=== PATIENT | female | born 1985 | race Caucasian/White ===

== ENCOUNTER 2020-08-24 07:00 | Outpatient (CLI) | payer MEDICAID | END 2020-08-24 23:59 | disposition home or self-care (01) | LOC: COV 07:00 | PROVIDERS: ATTEND Family Medicine | DX: R50.9 Fever, unspecified (principal); R05 Cough; M79.10 Myalgia, unspecified site; R53.83 Other fatigue; R19.7 Diarrhea, unspecified; R11.2 Nausea with vomiting, unspecified; Z20.822 Contact with and (suspected) exposure to COVID-19 ==

== ENCOUNTER 2021-03-13 09:54 | Emergency (ER) | payer MEDICAID ==
[2021-03-13 10:07] VITALS: BP 120/72
--- NOTE | 2021-03-13 11:12 | ED Physician Documentation ---
PD HPI HEENT - Stated complaint Stated Complaint: RT EAR PX - Chief complaint Chief Complaint: Heent - History obtained from History obtained from: Patient - History of Present Illness Timing - onset: How many weeks ago (1-2) Timing - duration: Weeks Timing - details: Gradual onset, Still present (worse the past couple of days. Had had some pain in ear area mildly, without discharge. Today noted some blood out on pillow.) Location: Right ear Associated symptoms: No: Fever, Rhinorrhea, Facial swelling, Headache, Cough Similar symptoms before: Has not had sx before Recently seen: Clinic (seen for dental cavity right lower molar a month ago. No ear pain at that time.) Review of Systems Constitutional: denies: Fever, Chills Ears: reports: Ear pain, Drainage/discharge. denies: Tinnitus/ringing Nose: denies: Rhinorrhea / runny nose, Congestion Throat: denies: Sore throat Respiratory: denies: Cough PD PAST MEDICAL HISTORY - Past Medical History Cardiovascular: None Respiratory: None Neuro: None Endocrine/Autoimmune: None - Present Medications Home Medications: Ambulatory Orders Medication Instructions Recorded Confirmed Neomycin/Polymyx/Hc Otic Drops 4 drops RIGHTEAR QID 4 Days #10 ml 03/13/21 [Cortisporin Ear Susp] Sulfamethox/Trimeth 800/160 1 each PO BID #10 tablet 03/13/21 [Bactrim Ds 800/160] - Allergies Allergies/Adverse Reactions: Allergies Allergy/AdvReac Type Severity Reaction Status Date / Time No Known Drug Allergies Allergy Verified 03/13/21 10:07 PD ED PE NORMAL - Vitals Vital signs reviewed: Yes - General General: Alert and oriented X 3, No acute distress, Well developed/nourished - HEENT HEENT: Moist mucous membranes, Pharynx benign, Dentition benign. No: Ears normal (left is normal. right canal with pimple appearing lesion midway with spot of blood on it at 6 oclock position. TM itself appears okay. Some redness of canal tissue in the area of lesion. No erositive lesions. ) - Neck Neck: Supple, no meningeal sign, No adenopathy Results - Vitals Vitals: Oxygen O2 Source Room air PD MEDICAL DECISION MAKING - ED course Complexity details: considered differential, d/w patient Departure - Departure Disposition: 01 Home, Self Care Clinical Impression: Abscess, ear canal Qualifiers: Laterality: right Qualified Code(s): H60.01 - Abscess of right external ear Condition: Stable Record reviewed to determine appropriate education?: Yes Instructions: ED Staph Infec Abx Tx Only Prescriptions: Sulfamethox/Trimeth 800/160 [Bactrim Ds 800/160] 1 each PO BID #10 tablet Neomycin/Polymyx/Hc Otic Drops [Cortisporin Ear Susp] 4 drops RIGHTEAR QID 4 Days #10 ml Comments: It appears to be an infection of the tissue in the ear canal but more like a skin infection rather than "swimmer's ear". We will treat this with topical eardrops 4 times a day but also oral antibiotics twice daily for 5 days. These are okay in breast-feeding. Use Tylenol or ibuprofen as needed for pains. I transmitted the prescriptions to [facility] in [place]. I would anticipate improvement over the next 2 to 3 days. Recheck if not better or if worsening. Discharge Date/Time: 03/13/21 12:07
[2021-03-13] MEDS ORDERED: IBUPROFEN 600 MG TABLET PO STA (11:26)
[2021-03-13] MEDS ORDERED: SULFAMETH/TRIMETH DS 800/160 MG TABLET PO STA (11:26)
== END 2021-03-13 12:07 | disposition home or self-care (01) ==
LOC: ED 09:54
DX: H60.01 Abscess of right external ear (principal)
CPT/HCPCS: 99282; 99283; A9270